=== PATIENT | male | born 2000 | race African-American/Black ===

== ENCOUNTER 2025-02-08 11:20 | Emergency (ER) | payer MEDICAID, OTHER ==
[~2025-02-08] VITALS: Ht 152.4 cm; Wt 81.8 kg
[2025-02-08 11:44] VITALS: TEMP 98.6
[2025-02-08] MEDS ORDERED: AMOX-457 PO ×2 (11:49→15:54)
[2025-02-08] MEDS ORDERED: DOXY-354 PO ×2 (11:49→15:54)
[2025-02-08] MEDS ORDERED: BENZ-227 PO (11:49)
[2025-02-08] MEDS ORDERED: GUAIF600 PO (11:49)
[2025-02-08 11:59] LABS: COVID AG,FIA SOURCE NASAL SWAB
[2025-02-08 12:39] LABS: SARS-COV2 (COVID) ANTIGEN,FIA Negative (Negative)
[2025-02-08 12:40] LABS: INFLUENZA TYPE A NEGATIVE FOR TYPE A (NEGATIVE); INFLUENZA TYPE B NEGATIVE FOR TYPE B (NEGATIVE)
[2025-02-08] MEDS: ALBUTEROL SULFATE HFA 90 MCG/PUFF 8 GM INHALER IH ONE (15:42)
[2025-02-08 16:00] VITALS: BP 105/70; PULSE 95; RESP 18; O2SAT 97
== END 2025-02-08 16:07 | disposition home or self-care (01) ==
LOC: EMS 11:29
DX: J98.01 Acute bronchospasm (principal); R05.9 Cough, unspecified; Z87.01 Personal history of pneumonia (recurrent); Z79.899 Other long term (current) drug therapy; Z20.822 Contact with and (suspected) exposure to COVID-19
CPT/HCPCS: 99284; 71045; 87426; 87804; 94640; J3535